=== PATIENT | female | born 1950 | race Caucasian/White ===

== ENCOUNTER 2021-09-23 02:24 | Inpatient (IN) | payer OTHER ==
[~2021-09-23] VITALS: Ht 154.9 cm; Wt 59.4 kg
[2021-09-23] MEDS ORDERED: ATORVASTATIN CA20 MG PO (05:58)
[2021-09-23] MEDS ORDERED: EUTHYROX88 MCG PO (05:58)
[2021-09-23] MEDS ORDERED: VISTARIL 25 MG25 M1 PO (05:59)
[2021-09-23] MEDS ORDERED: LAMOTRIGINE100 MG PO (05:59)
[2021-09-23] MEDS ORDERED: OLANZAPINE15 MG PO (05:59)
[2021-09-23] MEDS ORDERED: OMEPRAZOLE40 MG PO (06:00)
[2021-09-23] MEDS ORDERED: DULOXETINE HCL30 MG PO (06:00)
[2021-09-23] MEDS ORDERED: OLANZAPINE10 MG PO (06:01)
[2021-09-23] MEDS ORDERED: METOPROLOL SUCC50 MG PO (06:01)
[2021-09-23] MEDS ORDERED: LISINOPRIL10 MG PO (06:01)
[2021-09-23] MEDS ORDERED: HYDROCHLOROTH12.5 M2 PO (06:04)
[2021-09-24 13:39] LABS: CHOLESTEROL 163 mg/dL (<200); HDL CHOLESTEROL 55 mg/dL (>40); LDL CHOLESTEROL 85 mg/dL (<100); TRIGLYCERIDE 116 mg/dL (<150); VLDL 23 mg/dL (<40)
[2021-09-24 13:41] LABS: SERUM ASSESSMENT Clear
[2021-09-24 18:43] VITALS: BP 103/60
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
[2021-09-25 01:06] LABS: GLYCOHEMOGLOBIN (HGB A1C) 5.8 % (4.8-5.6)
--- NOTE | 2021-09-25 05:01 | NUR ---
09-24-21 CARE TRANSFERRED 1899. LATER PT AAOX4, VSS, RR EVEN AND NONLABORED ON RA, PT LUNGS CLEAR, HT RR, ABD SOFT/ACTIVE/NONTENDER. PT REPORTS HAVING THOUGHTS OF ENDING IT ALL BY OD, DENIES HI/VAH. PT PRESENTS DEPRESSED BUT COOPERATIVE. PT INTERESTED IN HS SNACK, BUT REFUSED WHEN ASKED TO COME TO DAY ROOM, PT WITHDRAWN. PT DENIES PAIN. DURING MEDICATION ADMIN OBSERVED PT MOVE FROM LAYING TO SITTING WITH EASE, SHE HAD NO DIFFICULTIES TAKING WHOLE WITH WATER. PT DENIES ANY REQUESTS AND DENIES NEEDING BED ADJUSTED. PT WILL CONTINUE TO BE MONITOR PER [facility] PROTOCOL.
--- NOTE | 2021-09-25 10:20 | NUR ---
New admit to [facility] for SI, psychosis. Hx bipolar, htn, laryngeal cancer. Visit this am in pt's room. States ate very good this am and has no nutrition meal requests. Reports usual wt 134 lb-current wt 129 lb so 5 lb decrease from usual/4% which is mild loss. Pt stated did not feel like eating past several weeks. Receptive to snack last evening. Will follow intake and wt trends while on [facility]. Otherwise, presents low nutrition risk
--- NOTE | 2021-09-25 12:54 | NUR ---
09-25-2021--1287--Team meeting attended and patient was discussed. Patient will return to her former residence and will stay here through the weekend and probably DC the middle of next week.
[2021-09-25 13:19] VITALS: BP 133/64
[2021-09-25 14:52] VITALS: BP 133/64
--- NOTE | 2021-09-25 16:33 | NUR ---
Assummed pt care this morning from overnight shift. Client was in room resting on bed. Client presented flat and calm at this time. Client was oriented 4x during assessment. Client denied any depression or anxiety when asked. Client denied any auditory or visual hallucinations. Client denied pain at this time. Client voiced no to suicidal and homicidal thoughts when asked. Lung sounds clear; bowel sounds present. Last BM 09/23 per shift report. Old medications were dc'ed yesterday by Dr. Huang, and lithium started. No adverse effects noted upon assessment- no shaking, tremors. When asked if she needed anything, client stated no. Client was encouraged to get out of room and participate in group at this time. No further concerns.
[2021-09-25 19:15] VITALS: BP 112/71
--- NOTE | 2021-09-26 04:06 | NUR ---
Assumed pt's care this HS shift. Pt alert and oriented. Pt was in her room resting with eyes closed at time of assessment. Denied SI/HI/AVH. Denied anxiety. Voiced to nursing "I'm ok right now". Pt cooperative with meds. Continues to sleep in her room. Nursing to continue to monitor.
[2021-09-26 09:55] VITALS: BP 91/61
[2021-09-26 10:00] VITALS: BP 118/72
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
[2021-09-26 20:41] VITALS: BP 155/77
--- NOTE | 2021-09-27 03:23 | NUR ---
Assumed pt's care this pm shift. Pt alert and oriented. Isolating in rm. Pt was calm and cooperative with care. Denied SI/HI. Voiced having "just the normal" anxiety and depression. Pt took meds without issues. Pt came out of rm at about 0200 and asked for sleep meds. Pt reminded she got sleep med at bedtime. Pt voiced having anxiety. This RN called Everette LOPEZ. Ok to switch 1400 prn ativan to prn daily and give pt. Med given to pt and pt currently sleeping. Nursing to continue to monitor.
[2021-09-27 10:25] VITALS: BP 155/82
[2021-09-27 19:57] VITALS: BP 89/44
[2021-09-27 20:10] VITALS: BP 89/44
--- NOTE | 2021-09-27 21:26 | NUR ---
Assumed pt care at 1300. Pt was in activity area sitting and talking to peers. Pt presented pleasant but anxious. Pt denied any depression, but did voice anxiety. Hank Martinez contacted for prn for anxiety 07/26 as client had already taken her prn ativan this morning at 2am and could only take it once a day. Ativan at 1400 was reinstated for anxiety on pt DEC per JAVA DEVELOPER WITH SECURITY CLEARANCE Juan and given to pt, providing relief of anxiety. Pt denied any visual or audio hallucinations at this time. She also denied any suicidal or homicidal intent. Pt was oriented 4x to her environment and surroundings. No pain noted at time of assessment. Scheduled anti-acid medication given at dinner time. No further concerns at this time.
--- NOTE | 2021-09-28 01:26 | NUR ---
09/27/21 @ 1900, ambulating with a steady gait in the day room and thru the halls to her room. Low fall risk, continent of B&B, A&Ox4, VS 89/44 61 16 afebrile, held lisinopril d/t hypotension. HRRR, Lungs CTA ABD Nx4Q. Reports general pain 6/10 and pain in her back. Just before midnight requests meds for insomnia and presents with an anxious affect. Order obtained from Owen MARQUEZ for Trazadone 100mg given now, and order set up to give Trazadone 100mg @ HS then a second dose may be given an hour later if insomnia continues. PRN Ativan 0.5 provided for anxiety. Returned to bed and is lying in bed at this writing with eyes closed, respirations even and unlabored. Will continue to monitor q12 minutes as per unit protocol for safety and comfort.
--- NOTE | 2021-09-28 06:02 | NUR ---
09/28/21 0600 Critical high value lithium 1.4 Hank Martinez NP hold lithium.
[2021-09-28 09:10] VITALS: BP 111/63
[2021-09-28 09:18] LABS: CALCIUM 10.7 mg/dL (8.5-10.1); CREATININE 1.7 mg/dL (0.6-1.0); POTASSIUM 4.2 mmol/L (3.5-5.1)
[2021-09-28 20:14] VITALS: BP 154/79
--- NOTE | 2021-09-28 23:09 | NUR ---
PATIENT RESTING IN THE COMMON AREA IN A RECLINER. SHE IS ANXIOUS AND STATES THAT SHE DOES NOT FEEL LIKE SHE CAN SIT DOWN. STATES THAT SHE DOES NOT KNOW WHY SHE IS ANXIOUS BUT SHE FEELS LIKE THIS FREQUENTLY. NOTED THAT SHE HAS JUST RECEIVED PRN ATIVAN AT 1913. PATIENT HAS IV INFUSING TO R FA AT THIS TIME. SHE STATES THAT SHE DID NOT SLEEP WELL LAST NIGHT SO SHE IS READY FOR BED. SPOKE WITH PATIENTS DAUGHTER YEHUDA WHO STATES THAT THE PATIENT DOES NOT SOUND LIKE HER NORMAL SELF. SPOKE WITH THE DAUGHTER ABOUT PATIENTS MEDICATIONS. PATIENT IS AAOX4 AND FOLLOWS ALL COMMANDS. SHE DOES SEEM TO EXHIBIT SOME FORGETFULLNESS. NO S/S OF DISTRESS NOTED. PATINET DENIES PAIN AT THIS TIME.
[2021-09-29 06:27] LABS: ALBUMIN 3.4 g/dL (3.4-5.0); CALCIUM 9.4 mg/dL (8.5-10.1); CREATININE 1.3 mg/dL (0.6-1.0); MAGNESIUM 1.8 mg/dL (1.8-2.4); POTASSIUM 4.2 mmol/L (3.5-5.1); TOTAL BILIRUBIN 0.3 mg/dL (0.2-1.0); TOTAL PROTEIN 6.3 g/dL (6.4-8.2)
[2021-09-29 09:32] VITALS: BP 178/70
[2021-09-29 10:03] VITALS: BP 193/95
[2021-09-29 17:02] VITALS: BP 104/64
--- NOTE | 2021-09-29 17:09 | NUR ---
Ary was alert and oriented x4 this shift. She presented as anxious yet cooperative and pleasant. She stated that she felt restless and would be walking the unit this shift, which was observed. Pt expressed that she felt better than the day prior but "I'm still depressed". She expressed that her depression has maybe improved "by a pinch" and continues to endorse ongoing anxiety. She asked to shower today, and was setup in the shower room, which she was able to complete her shower independently. Pt remains a low fall risk and ambulates independently, without difficulty. He initial BP electronically this morning was 193/95. This RN retook BP manually and was 178/70; scheduled BP medications given per DEC. BP was rechecked this afternoon as was 104/64. Pt had c/o lower back pain this shift and was given PRN tylenol around 1615; discussed with pt how a lidocaine patch may be helpful if pain continues. Pt agreed. She denied any other physical complaint this shift and denied SI/HI/ORMERO and was able to contract for safety. Pt is currently sitting calmly in the dayroom eating dinner. She reported a decreased appetite this shift stating that she did not like the food that was being served, a menu was provided to pt, but she did not choose to order her own meals today. Will remind pt that this is an option if she wishes for tomorrow; will continue to monitor.
[2021-09-29 20:07] VITALS: BP 140/48
--- NOTE | 2021-09-30 01:34 | NUR ---
PATIENT APPEARS TO BE IN BETTER SPIRITS THIS EVENING. SHE IS AAOX3. STATES THAT SHE IS FEELING BETTER TODAY AFTER RECEIVING FLUIDS. NOTED THAT PATIENT DID NOT HAVE ANY ATIVAN TODAY. SHE IS QUIET TODAY AND HAS STAYED TO HERSELF. WAS COMPLAINING ABOUT THE BED IN HER ROOM BUT WAS ABLE TO REST AFTER STAFF ADJUSTED THE HEAD OF EB. SHE WAS COMPLIANT WITH ALL MEDICATIONS AND TREATMENT. ALL SAFETY PRECAUTIONS ARE IN PLACE. DENIES ANY PAIN AT THIS TIME. NO S/S OF DISTRESS NOTED. WILL CONTINUE TO MONITOR FOR CHANGES IN STATUS.
[2021-09-30 13:57] VITALS: BP 148/123
--- NOTE | 2021-09-30 16:23 | NUR ---
PATIENT HAS BEEN UP, AND OUT ON THE UNIT, AMBULATE WITH STEDY GAIT. PATIENT IS ALERT, AND ORIENTED X 3-4, ABLE TO VOICE NEED. PATIENT TOOK ALL MEDICATION WHOLE WITHOUT DIFFICULTY, SHE IS EATING MEALS, AND DRINKING FLUID WELL. PATIENT APPEARED RESTLESS/ANXIOUS IN THE MORNING, BUT GOT STABLE THE DAY PRORESSESS. PATIENT DENIES SUICIDAL/HOMICIDAL IDEATION, RATES BOTH DEPRESSION/ANXIETY 5/10, SHE DENIES AUDITORY/VISUAL HALLUCINATION, DENIES HAVING PHYSICAL PAIN. AFFECT IS BRIGHT, MOOD IS EUTHYMIC. NO SIGN OF ACUTE DISTRESS NOTED AT THIS TIME, WILL MONITOR FOR SAFETY.
[2021-09-30 18:13] VITALS: BP 117/56
[2021-09-30 19:22] VITALS: BP 121/53
--- NOTE | 2021-09-30 22:59 | NUR ---
09/30/21 1900 IN THE DAY ROOM AT START OF SHIFT, SOCIALIZING WITH FEMALE PEERS AND AMBULATING TO BEDROOM. A&OX4, CONFUSION AND FORGETFULNESS NOTED. PLEASANT AFFECT NOTED COOPERATED WITH ASSESSMENT, HRRR, LUNG SOUNDS CTA BILAT, ABD N X 4Q, REPORTS BM YESTERDAY ON 09/29. AMBULATES WITH A STEADY GAIT, LOW FALL RISK. WILL CONTINUE TO MONITOR FOR SAFETY AND COMFORT.
[2021-10-01 06:27] LABS: CALCIUM 9.8 mg/dL (8.5-10.1); CREATININE 1.5 mg/dL (0.6-1.0); POTASSIUM 4.8 mmol/L (3.5-5.1)
[2021-10-01 07:00] VITALS: BP 176/65
[2021-10-01 09:35] VITALS: BP 176/65
--- NOTE | 2021-10-01 10:33 | NUR ---
RT Progress Note- Ary has been consistently present in recreation therapy groups as well as the general milieu throughout each day since her admission. Ary regularly endorses depression during group discussions but will rate it at a "pinch better" when asked whether she feels as if it is improving. She displays restlessness and frequently paces during groups. OFFICE COORDINATOR will continue to encourage patient participation and improvement in coping skills throughout her stay.
[2021-10-01 12:00] VITALS: BP 110/64
--- NOTE | 2021-10-01 12:29 | NUR ---
Nutrition follow up: Pt noted with good dietary intakes since admit with avg intakes 75-100%. No wt this week. Vit D labs pending. Per physician's note, SLUMS administered with very low results, concerning for dementia. He will assess pt further for dx criteria. Likely will need placement on d/c. Remains low nutrition risk.
--- NOTE | 2021-10-01 15:45 | NUR ---
Alert and orientated X 4. Denies SI/HI. Frequent requests. Up ambulating with regular, steady gait. States she had low back pain mid AM, tylenol given with minimal results. Dr. Garcia and Reina notified. Dr. Garcia spoke with pt. Scheduled Tylenol and prn Tramadol ordered. Pt states pain 8/10 but wanted to try Tramadol. Pain decreased to 5 per pt. Smiling, conversive, participating in group and ambulating without s/o distress. Breath sounds clear. Reg HR auscultated. Color pink with brisk capillary refill and palpable peripheral pulses. Independent with voiding, clear yellow urine in toilet. Active bowel sounds over soft, rounded abdomen. Currently in day room with peers.
[2021-10-01 19:40] VITALS: BP 134/68
--- NOTE | 2021-10-02 03:08 | NUR ---
10-01-21 CARE TRANSFERRED 0 OBSERVED PT SITTING IN DAY ROOM SOCIALIZING WITH PEERS. LATER PT AAOX4, VSS, RR EVEN AND NONLABORED ON RA, LUNGS CLEAR, HT RR, ABD SOFT AND ACTIVE. PT DENIES SI/HI BUT REPORTS LOWER BACK PAIN. DURING MEDICATION ADMIN PT HAD NO DIFFICULTIES TAKING MEDICATION WHOLE WITH WATER. UPON REASSESSMENT OF PAIN NOTED PT RESTING WITH EYES CLOSED. PT WILL CONTINUE TO BE MONITOR PER [facility] PROTOCOL.
[2021-10-02 09:25] VITALS: BP 117/97
--- NOTE | 2021-10-02 11:47 | NUR ---
10-02-2021--1564--Attended team meeting this date. Possibly DC to [facility]. Will call [place] to find out. Doctor and SW will talk to daughter. Dr. Dodson cooing to do mental status testing today.
--- NOTE | 2021-10-02 11:50 | NUR ---
RESUMMED CARE FROM OVERNIGHT SHIFT THIS AM, PATIENT IN DAY ROOM PACES BACK AND FORTH. PATIENT COMPLAINED OF BACK PAIN I PUT A LIDOCAINE PATIENT ON PATIENT. PATIENT HAD SCHEDULED TYLENOL AND AN ORDERED FOR A HEATING PAD WHICH WE CANNOT HAVE ON THE UNIT. A SUGGESTION WAS MADE IF PATIENT NEEDED TO HAVE THE HEATING PAD; SHE WOULD HAVE TO BE IN DAYROOM UNDER SUPERVISION. PATIENT ALERT ORIENTED TIMES 3. PATIENT DENIES SI/HI/AH/VH AT PRESENT PATIENT ATE BREAKFAST TOOK MEDICATION WITHOUT INCIDENCE. PATIENTS ABDOMEN SOFT BOWEL SOUNDS PRESENT, PATIENTS LUNGS CLEAR. PATIENT DOES COMES TO GROUP BUT SOMETIMES CANNOT SIT STILL DUE TO BACK PROBLEMS. PATIENT ANXIOUS AT TIMES NO BEHAVIORS NOTED WILL CONYINUE TO MONITOR PATIENT FOR SAFETY AND BEHAVIORS.
--- NOTE | 2021-10-02 11:55 | NUR ---
10-02-2021--1155--Call to [facility] ([phone]) to determine oif patient can come back to their facility. No one in. Message left to return my call.
[2021-10-02 19:21] VITALS: BP 83/46
[2021-10-02 21:06] LABS: SYPHILIS AB Non Reactive (Non Reactive)
--- NOTE | 2021-10-03 05:02 | NUR ---
Assumed care of pt at 1900. Pt calm et cooperative this shift. Took medications whole without difficulty. Ambulates the halls ad marylu with steady gait. Isolated in room most of shift. Talked with daughter at beginning of shift. Pt states that she came onto the unit with a full set of dentures and is now missing her bottom plate. Pt states that someone on the prior shift found her top plate for her but has yet to find her bottom plate. Will pass onto the oncoming shift to report to the director. Lisinopril held this shift due to b/p reading of 83/46. B/P was rechecked manually by this nurse et found to be 98/62. All other VSWNL. Health assessment with no abnormalities noted at present time. Pt denies SI/HI at present time. Currently resting in bed with eyes closed. Will continue to monitor per unit protocol.
[2021-10-03 09:15] VITALS: BP 195/76
[2021-10-03 13:42] LABS: CALCIUM 9.5 mg/dL (8.5-10.1); CREATININE 1.1 mg/dL (0.6-1.0)
[2021-10-03 13:49] LABS: ALBUMIN 3.5 g/dL (3.4-5.0); TOTAL BILIRUBIN 0.3 mg/dL (0.2-1.0); TOTAL PROTEIN 6.6 g/dL (6.4-8.2)
[2021-10-03 13:50] LABS: ABSOLUTE NEUTROPHILS 5.8 thou/uL (1.4-8.2); BASOPHILS 0.2 % (0.0-2.0); EOSINOPHILS 0.9 % (0.0-3.0); HEMATOCRIT 35.9 % (37.0-47.0); HEMOGLOBIN 11.8 gm/dL (12.0-15.0); MCH 30.6 pg (26.0-34.0); MCV 92.6 fL (80.0-100.0); PLATELET COUNT 202 thou/uL (150-400); POLYS 84.9 % (36.0-66.0); RBC 3.88 mil/uL (4.20-5.00); WBC 6.8 thou/uL (4.0-11.0)
--- NOTE | 2021-10-03 14:11 | NUR ---
10-03-2021--1300--Went to patient's room to get her for group. She was laying in bed and the room was dark. I was able to rouse her and she stated she was ill and had thrown up her lunch. I told her she didn't have to come to group if she was feeling badly. Will check on her later this day. RN aware patient is feeling ill and blood has been drawn.
[2021-10-03 15:24] VITALS: BP 131/60
[2021-10-03 16:49] VITALS: BP 119/48
--- NOTE | 2021-10-03 18:48 | NUR ---
Patient care resummed; patient in bed resting comfortably; Patient has been in room most of the day coming out for meals and water; Patient denies SI/HI/AVH, Anxiety, Depression; Pt. states chronic back pain 02/23; Medications given per EMAR; Patient appears drowsy, winthdrawn, and lethargic; Patient vomited at 1225 after eating 10% of her lunch; PAD MACHINE OFFBEARER noted entire body tremors, pinpoint pupils, and pt. stated feeling "foggy." PAD MACHINE OFFBEARER consulted STUMMEL SELECTOR [place] and Stat labs were ordered and reviewed. Lung sounds clear, unlabored; Abdomen soft, nondistened, with bowel sounds present*4; Skin noted to be pale in color; VSS on RoomAir; Patient denied Stomach pain; Will continue to monitior patient for safety and behaviors.
[2021-10-03 19:58] VITALS: BP 124/52
[2021-10-03 22:22] VITALS: BP 124/52
--- NOTE | 2021-10-04 04:23 | NUR ---
Ary was in her room from the start of the shift resting quietly. She was woken up for her HS medications and expressed she was feeling "blah-zey". She stated that she had "a rough day" and still was not feeling the best but denied one specific thing or symptom that was bothering her. She expressed optimism about tomorrow in hopes that it will be better. She stated her depression and anxiety were "so, so" but denied SI/HI/ROMERO. She was medication compliant, without difficulty and appeared to sleep comfortably throughout the night. She stated she had a small BM on 10/03 and denied nausea/constipation/SOB/pain at this time. Will continue to monitor.
[2021-10-04 09:22] VITALS: BP 150/69
[2021-10-04 09:23] VITALS: BP 150/69
--- NOTE | 2021-10-04 10:28 | NUR ---
Ary was alert and oriented x4 this morning. She presented as calm, cooperative, withdrawn, and isolative with a flat affect. She came out to the dayroom to eat breakfast but went back to her room once she was done. She was unable to eat most the food from her tray due to not having her bottom set of dentures and asked for an ensure; the kitchen is supposed to be bringing up chocolate ensures for her. Pt was provided with some applesauce and yogurt as well. Pt denied SI/HI/ROMERO. She was medication compliant, taking pills whole without difficulty. She has an episode of emesis yesterday and due to pt just starting cymbalta thought it could possibly have been a side of GI upset. Therefore brandon was given with her AM medications to see if that would help. Pt does express she feels "a little" better this morning compared to how she felt yesterday. Pt is currently resting quietly in bed, will continue to monitor.
--- NOTE | 2021-10-04 13:01 | NUR ---
10-04-21--1243--Patient was seen this afternoon before group, coming down the [place]. I inquired how she was feeling as yesterday she was throwing up. She states she feels much better today and is going to try ordering off the menu and getting one of the smaller meals. Patient attempting to cope with changes that are occuring such as her upcoming DC. She talks about it woth me now without having the anxiety she displayed two days ago when we spoke about discharge
[2021-10-04 19:54] VITALS: BP 98/44
[2021-10-05] VITALS (10 sets, daily range): BP systolic 94–118; BP diastolic 43–70
--- NOTE | 2021-10-05 03:55 | NUR ---
10-04-21 CARE TRANSFERRED 1899. LATER PT AAOX4, B/P LOW WALDO TAKEN 90/62, P 92, RR 16 EVEN AND NONLABORED ON RA. PT DENIES SI/HI. PT LUNGS CLEAR DIMINSIHED, HT RR, ABD SOFT/ACTIVE/NONTENDER. OBSERVED PT MOVING FROM LYING DOWN TO SITTING WITH EASE. PT PLEASANT, CALM AND COOPERATIVE THROUGHTOUT NURSING ASSESSMENT. PT DENIES SI/HI AND REPORTED BACK PAIN. FLUIDS ENCOURAGED AND PT DRANK 480ML OF WATER AND ATE 100% OF ICE CREAM CUP. DURING MEDICATION ADMIN PT HAD NO DIFFICULTIES TAKING MEDICATION WITH WATER AND CONSUMED 240ML. FLUIDS WILL CONTNUE TO BE ENCOURAGED WHILE AWAKE. PT BED WAS ADJUSTED FOR COMFORT. UPON REASSESSMENT FOR PAIN NOTED PT RESTING WITH EYE CLOSED, PT WLL CONTINUE TO BE MONITOR PER [facility] PROTOCOL.
[2021-10-05 06:23] LABS: ALBUMIN 3.4 g/dL (3.4-5.0); CALCIUM 9.2 mg/dL (8.5-10.1); CREATININE 1.7 mg/dL (0.6-1.0); POTASSIUM 4.5 mmol/L (3.5-5.1); TOTAL BILIRUBIN 0.3 mg/dL (0.2-1.0); TOTAL PROTEIN 6.4 g/dL (6.4-8.2)
--- NOTE | 2021-10-05 09:17 | NUR ---
CODE STROKE LEVEL 1 RESPONSE FROM THIS WEB DATABASE DEVELOPER. STROKE ACTIVATION AT 08:07. PT LAYING IN BED. INITIAL NIHSS OF 4. LEFT SIDED FACIAL DROOP, LEFT SIDED SENSORY CHANGES, LEFT UPPER EXT ATAXIA AND SLURRED SPEECH. REPORT FROM RN FOLLOWS. PT FOUND SLUMMPED AT TABLE AND TAKEN BACK TO BED. BLOOD GLUCOSE LEVEL-81. PT HYPOTENSIVE WITH BP IN 80'S INITIALLY. NS INFUSION INITIATED. PT WAS SLOW TO REPOND. DR PEARSON ARRIVES TO BEDSIDE. TELENEUROLOGY CONSULTED AT BEDSIDE AND RECOMMENDS NO TPA HOWEVER FULL STROKE WORKUP. PT TAKEN TO CT WITH CT HEAD AND ANGIO COMPLETED. PT FACIAL DROOP RESOVING HOWEVER SPEECH AND SENSORY CHANGES REMAIN. PT TAKEN BACK TO ROOM AWAITING NEW BED ASSIGNMENT.REPORT GIVEN TO TULIO LUDWIG. WILL CONTINUE TO FOLLOW.
--- NOTE | 2021-10-05 09:25 | NUR ---
PT REPORTED TO HAVE LOW BP ON MACHINE THIS AM-RECHECKED BY RN AT 0745 AND IS 118/70-AMBULATES WITH ROLLER WALKER TO BREAKFAST ACCOMPNIED BY MARKETING SUPPORT MANAGER. AT APPROX 0800 NOTED TO BE SITTING WITH HEAD BOWED AND VERY SLOW TO RESPOND WOT VERBAL STIMULI-SKIN PALE BUT COOL,DRY-WHEN PROMPTED TO SPEAK TO US MAKES A LOW GROANING SOUND BUT APPEARS UNABLE TO SPEAK-BROUGHT TO ROOM IN WC-CODE STROKE CALLED-VS OBTAINED AND BP IS 89/64-P-49 O2 SAT 92 OERCENT. O2 PLACED AT 2LITERS PER NC-IV STARTED IN RIGHT ANTICUBITAL. STROKE TEAM AT BEDSIDE AT 0815-BP99/43 P-49 R12 AND REGULAR-02 SAT [address] SCAN AT APPROX 0830-VS 106/45 P-53 02 94 PERCENT
--- NOTE | 2021-10-05 11:28 | NUR ---
MEAL COOKER CALLED THIS MORNING FOR STROKE-LIKE SYMPTOMS. SEE FLOWSHEET FOR DETAILS.
--- NOTE | 2021-10-05 14:41 | 2DMMODE ---
[address] [address] 2 D/M-MODE ECHOCARDIOGRAM Name: ZACHARY SANTO MARY Room #: [facility]- ADM IN M.R.#: [id number] Admission: 09/24/21 Attend Phys: Arash Huang DO Discharge: Date of : 48 Report #: [id number] THIS REPORT FOR: cc: VERONICA BAUTISTA NP, AMY NP Santiago, Patrick MD [facility] ~ APPROVED REPORT Study performed: 10/05/2021 13:57:05 EXAM: Comprehensive 2D, Doppler, and color-flow Echocardiogram Patient Location: Bedside Room #: [facility] Status: routine BSA: 1.57 HR: 58 bpm BP: 118/70 mmHg Rhythm: Bradycardia Other Information Study Quality: Good Indications CVA/TIA Hypertension/HDD Echo Enhancing Agent Indication: Rule out Shunt Agent(s) / Amount(s) Used: Agitated Saline 7 cc 2D Dimensions IVC: 12.00 mm Volumes Left Atrial Volume (Systole) LA ESV Index: 26.00 mL/m2 Tricuspid Valve PA Pressure: 30.00 mmHg Left Ventricle The left ventricle is normal size. There is normal LV segmental wall motion. There is normal left ventricular wall thickness. The left ventricular systolic function is normal. The left ventricular [address] [address] 2 D/M-MODE ECHOCARDIOGRAM Name: ZACHARY SANTO Room #: 52-B ADM IN M.R.#: [id number] Admission: 09/24/21 Attend Phys: Arash Huang Discharge: Date of : 48 Report #: [id number] ejection fraction is within the normal range. LVEF is 60-65%. Grade I - abnormal relaxation pattern. Right Ventricle The right ventricle is normal size. The right ventricular systolic function is normal. Atria The left atrium size is normal. Injection of contrast documented no interatrial shunt. The right atrium size is normal. Aortic Valve The aortic valve is normal in structure. No aortic regurgitation is present. There is no aortic valvular stenosis. Mitral Valve The mitral valve is normal in structure. There is no mitral valve regurgitation noted. No evidence of mitral valve stenosis. Tricuspid Valve The tricuspid valve is normal in structure. Mild tricuspid regurgitation. No pulmonary hypertension. Pulmonic Valve The pulmonary valve is normal in structure. There is no pulmonic valvular regurgitation. Great Vessels The aortic root is normal in size. IVC is normal in size and collapses >50% with inspiration. Pericardium There is no pericardial effusion. <Conclusion> Normal left ventricle size/wall thickness Ejection fraction 60-65% Grade 1 diastolic dysfunction Normal right ventricle size/function Normal atrial size Aortic valve mildly sclerotic without stenosis Normal mitral valve structure and function Mild tricuspid valve insufficiency Pulmonary systolic pressure estimated 30 mmHg [facility] [address] [place] [address] 2 D/M-MODE ECHOCARDIOGRAM Name: ZACHARY SANTO MARY Room #: 521B-B ADM IN M.R.#: [id number] Admission: 09/24/21 Attend Phys: Arash Huang Discharge: Date of : 48 Report #: [id number] No pericardial effusion Normal aortic root size <ELECTRONICALLY SIGNED> By: Jb San MD, FACC 10/05/21 1441 144 144 Jb San MD, FACC /INF
--- NOTE | 2021-10-05 17:12 | NUR ---
AT BEDSIDE MAJORTIY OF SHIFT TO MAINTAIN 1;1 THROUGHOUT INFUSION OF 1000ML OF NS VIA IV TO RIGHT ANTICUBITAL,Q 15 MIN VS X8 AND Q 30 MIN VS X12 PER STROKE PROTOCOL ORDERED THIS AM-RN IN ROOM FOR MULTIPLE DIAGNOSTIC TESTS ORDERED PER STROKE WORK UP-IE CAROTID DOPPLER,ECHOCARDIOGRAM,SPEECH,PT,OT EVALS. DID EAT 50 PERCENT OF BOTH LUNCH AND DINER-DIET CHANGED TO CHOPPED PER SPEECH EVL RECOMMENDATIONS-INSISTING THAT SHE CAN NOT EAT SOLID FOODS D/T LOWER DENTURES BEING LOST-LOWER DENTURES FOUND IN ROOM WITH OTHER BELONGINGS AND MATCH UPPER PLATE THAT SHE IS WEARING HOWEVER INSISTING THAT THEY ARE NOT HER TEETH. UP TO BATHROOM X3 . PLEASANT AND COOPERATIVE WITH STAFF THROUGHOUT DAY-REPORTING BEING UPSET THAT SHE HAS BEEN AWAKENED Q15-30 MIN FOR NEURO CHECKS BUT IS COOPERATIVE WITH ALLOWING. ORIENTED X4. GAIT UNSTEADY DESPITE USE OF ROLLER WALKER-REPORTS FEELING 'WEAK"
[2021-10-06 04:00] VITALS: BP 118/66
[2021-10-06 07:30] LABS: CALCIUM 9.6 mg/dL (8.5-10.1); CREATININE 1.2 mg/dL (0.6-1.0); POTASSIUM 4.5 mmol/L (3.5-5.1)
--- NOTE | 2021-10-06 07:45 | NUR ---
10-06-21 CARE TRANSFERRED 1899. LATER PT AAOX4, B/P 90/62, P 65, WALDO TAKEN 94/62, RR 19, PT DENIES PAIN AND SI/HI OBSERVED PT GAIT WITH WALKER. PT SPEECH CLEAR, STEAM TURBINE OPERATOR EQUAL, EYES EQUAL AND REACTIVE, SMILE EQUAL, NO UE/LE DRIFT. PT PLEASANT, CALM AND COOPERATIVE. PT WILL CONTINUE TO BE MONITOR.
--- NOTE | 2021-10-06 09:58 | NUR ---
10-06-2021--1000--Talked to doctor today and he said he talked to Alanis yesterday and made an appointment meeting for today at 3:30. He is not sure of the time and wanted me to call her to verify. Call made no answer and no machine. He states the plan is for her to go to her daughters home and start in a PHP program for something to do . I will call [facility] to determine of they have a PHP program. I will try call again this AM.
--- NOTE | 2021-10-06 10:09 | NUR ---
10-06-2021--1000--Call to [facility] [address] [place], [place]. ([phone]). They report their PHP program is full and they will not be having oit the week of 24 to 31. They also report their program is an Active Adult Daycare and lasts only for up to two weeks. I called [facility] ([phone]). They require the patient to callherself so she can answer some questions and they would get her in as quick as possible for an intake. Attempted to call Chelly again. No answer. The other option would be the [facility] program at [address] [facility] In [place], [place]. She needs to call for this program also and talk to Yara for enrollment. This program is covered by her [facility] Medicare.
[2021-10-06 10:38] VITALS: BP 151/67
[2021-10-06 11:18] VITALS: BP 138/71
--- NOTE | 2021-10-06 11:47 | NUR ---
RESUMMED CARE FROM OVERNIGHT SHIFT THIS AM, PATIENT IS WALKING AROUND HALLS OF UNUT. SHE STATES SHE CANNOT SIT STILL SHE NEEDS TO KEEP MOVING AROUND. PATIENT ALERT ORIENTED TO SITUATION, ALERT TO YEAR AND MONTH FORGOT DAY. PATIENT DENIES SI/HI/AH/VH AT PRESENT. PATIENTS ABDOMEN SOFT BOWEL SOUNDS PRESENT; PATIENTS LUNGS CLEAR. PATIENT DOES COME TO GROUPS AND WANTS TO GO HOME TOMMOROW. PATIENT STATES SHE FEELS BETTER AFTER THE IV FLUIDS YESTERDAY. WILL CONTINUE TO MONITOR PATIENT FOR SAFETY AND BEHAVIORS.
[2021-10-06 20:17] VITALS: BP 141/61
--- NOTE | 2021-10-07 05:36 | NUR ---
10-06-21 CARE TRANSFERRED 1899 OBSERVED PT WALKING IN HALLWAY WITH WALKER. PT AAOX4, VSS, RR EVEN AND NONLABORED ON RA; LUNG CLEAR/DIMINISHED, HT RR, ABD SOFT/ACTIVE/NONTENDER. PT DENIES SI/HI. PT PLEASANT, CALM AND COOPERATIVE. DURING MEDICATION ADMIN PT HAD NO DIFFICULTIES TAKING MEDICATION WHOLE WITH WATER. PT REPORTED THAT HER ROOMATE ADDS TO HER ANXIETY, BECAUSE SHE TALKS TOO MUCH. PT BED WAS ADJUSTED FOR COMFORT. PT WILL CONTINUE TO BE MONITOR PER [facility] PROTOCOL.
--- NOTE | 2021-10-07 10:39 | NUR ---
RESTLESS AND PACING THROUGHOUT AM-UP AND DOWN EVERY 2-3 MINUTES SOMETIMES MORE FREQUENTLY-DOES ACKNOWLEDGE FEELING NERVOUS BUT SHOWS NO INSIGHT INTO THINGS SUCH TRIGGERS.
--- NOTE | 2021-10-07 11:00 | NUR ---
RT Progress Note- Ary continues to participate in both the milieu and recreation therapy groups as she was previously. She continues to display restlessness and is unable to sit for longer periods of time without intermittently pacing area. When she does this she describes her feelings as, "antsy." She does report improvement in her depression but endorses worry about her future. SACK KEEPER will continue to encourage participation and improvement.
[2021-10-07 11:01] VITALS: BP 174/66
--- NOTE | 2021-10-07 11:02 | NUR ---
MULTIPLE DEMANDS /REQUESTS TODAY. STATES SHE IS GOING HOME TODAY AND HAS REQUESTED SHOWER AND MULTIPLE OTHER SMALL REQUESTS/CONCERNS. USING ROLLER WALKER FOR AMBULATION-REMAINS ON [place] R[place]K PROTOCOL BUT IS NON-COMPLIENT WITH REQUESTS FROM STAFF TO ALLOW US TO ASSIST WITH AMBULATIONCOMPLIENT WITH TAKING MEDS PO-DENIES SI/SH. CONSTRICTED AFFECT-ORINETED X3. BP PRIOR TO AM MEDS 174/66 P-58. DENIES DIZZINESS. DENIES PAIN-STATING "I'M FINE I JUST WANT TO GO HOME"
--- NOTE | 2021-10-07 11:33 | NUR ---
Followup: code stroke called earlier this week for pt. Diet has been downgraded by ST since pt refusing to wear dentures. Has ensure supplements which were ordered. Intakes have been fair and wts are stable as of 10/03. Vitamin D level wnl. Remains low nutrition risk with appropriate nutrition interventions in place
--- NOTE | 2021-10-07 11:58 | NUR ---
10-07-2021--1288--Attended team meeting for patient this date. Patient has been "antsy" mildly agitated today. She couldn't sit still in my office when we were attempting to contact her insurance company. She requested the door be opened and left open. She also stated she couldn't make any decisions right now. The same two facilities were given to me by her insurance company. I have a handout to send with her of the two programs that are in network, etc. Patient appeared very anxious the last time we discussed her dischargng. Question if this anxiety is the fear of the change coming and if [facility] placement may be the right setting for her where there is more structure.
[2021-10-07 19:20] VITALS: BP 137/57
[2021-10-07 22:12] VITALS: BP 137/57
--- NOTE | 2021-10-08 00:19 | NUR ---
Ary was alert and oriented x4 this shift. She was noted walking around with a walker at the start of the shift. She approached the nurses station and had a smile on her face. She appeared in good spirits and expressed she is ok not being discharged prior to Gladys as she does not want to discharge until she is ready. She was laying down resting in med when brought her HS medications. She presented as calm, cooperative, and pleasant. She rated her depression and anxiety 4/10 and denied SI/HI/ROMERO. She denied pain at that time but received her scheudled tylenol. She denied other physical complaints at that time and appeared to rest comfortably throughout the night; will continue to monitor.
--- NOTE | 2021-10-08 10:48 | NUR ---
RESTLESS AND PACING THROUGHOUT AM-ASKING SEVERAL TIMES "WHEN WILL I GET BETTER" NOT RECEPTIVE WITH ATTEMPTS TO TRY RELAXATION TECHNIQUES,DEEP BREATHING STATING "I CAN'T"BP THIS AM157/68 P-63. GAIT IS STEADY WITH USE OF ROLLER WALKER
[2021-10-08 10:49] VITALS: BP 123/81
[2021-10-08 11:23] LABS: CALCIUM 9.6 mg/dL (8.5-10.1); POTASSIUM 4.2 mmol/L (3.5-5.1)
[2021-10-08 11:30] LABS: ALBUMIN 3.7 g/dL (3.4-5.0); TOTAL BILIRUBIN 0.1 mg/dL (0.2-1.0); TOTAL PROTEIN 7.1 g/dL (6.4-8.2)
--- NOTE | 2021-10-08 15:36 | NUR ---
GIVEN FIRST DOSE OF INDEROL PO AT APPROX 1115-BP TAKEN PRIOR TO AFMINISTRATION 149/74-PT DENIES DIZZINESS . DOES APPEAR LESS RESTLESS WITHIN APPROX 45 MIN FROM ADMINISTRATION TIME-RESTING QUIETLY IN BED BETWEEN SCHEDULED GROUPS THIS PM
[2021-10-08 19:28] VITALS: BP 182/62
[2021-10-08 22:27] VITALS: BP 124/62
--- NOTE | 2021-10-09 05:10 | NUR ---
Ary was alert and oriented x4 this shift. She presented as withdrawn and sad this shift. She also appeared frustrated regarding her roommate being very talkative and she appeared restless trying to rest but then getting up to walk around the unit with her walker, due to her roommate being on the phone. Her BP upon initial assessment was 182/62, this RN retook manually and was 174/78. Pt received her HS medications and about an hour after pt's BP was 124/62, manually. She denied SI/HI/ROMERO but did present with a flat affect. She denied pain and other physical complaints at that time. Pt appeared to rest comfortably throughout the night; will continue to monitor.
[2021-10-09 09:30] VITALS: BP 105/62
[2021-10-09 09:44] VITALS: BP 105/62
--- NOTE | 2021-10-09 17:26 | NUR ---
Primary care done by Kristan Sherwood LPN. Assessment done by this RN. Alert and orientated X4. Calm, cooperative and compliant. Restless this AM and anxious for meds, sleeping in room in afternoon. Denies SI/HI. Breath sounds clear. Reg HR auscultated. Color pink with brisk capillary refill and palpable peripheral pulses. Brief dry. Active bowel sounds over soft, rounded abdomen. Ambulates with regular, steady gait. Currently ambulating in halls without s/o distress.
[2021-10-09 19:19] VITALS: BP 181/73
--- NOTE | 2021-10-10 04:13 | NUR ---
Assumed care of pt at 1900. Pt calm et cooperative this shift with pleasant demeanor. AOX3. Took medications whole without difficulty. Ambulates the halls ad marylu with steady gait. Socialized with peers in dayroom early in shift. VSWNL. Health assessment with no abnormalities noted at present time. Pt denies SI/HI at present time. No AVH noted at present time. No c/o pain or discomfort this shift. Currently restin in bed with eyes closed. Will continue to monitor per unit protocol.
[2021-10-10 08:35] VITALS: BP 125/63
[2021-10-10 09:11] VITALS: BP 125/63
--- NOTE | 2021-10-10 16:43 | NUR ---
Assumed pt care this morning from overnight shift. Pt was in activity area sitting and watching television. Pt presented anxious, but pleasant and was oriented 4x at this time. Pt expressed generalized pain /10. Lidocaine patch applied for back pain, and voltaren cream applied on back by staff. Client also given scheduled tylenol. Partial pain relief 2/10 achieved. Client reported depression and anxiety at a seven. Scheduled medications given for this. Client denied hallucinations at this time. Client also denied suicidal and homicidal thoughts at this time. Lung sounds clear with slight wheezing in upper right lobe. Bowel sounds present. Last noted BM 10/10. Client has no further concerns at this time.
[2021-10-10 19:07] VITALS: BP 146/72
[2021-10-10 20:45] VITALS: BP 146/72
--- NOTE | 2021-10-11 01:17 | NUR ---
PATIENT IS CALM AND COOPERATIVE. SHE TOOK HER MEDS WHOLE WITH WATER. SHE DENIES SI/HI/AVH. SHE IS UP WITH WALKER. PATIENT IS RESTING IN BED WITH EYES CLOSED. DENIES PAIN. ROUTINE ROUNDS TO ASSESS SAFETY AND STATUS OF PATIENT. CONTINUING TO MONITOR.
[2021-10-11 09:41] VITALS: BP 160/84
--- NOTE | 2021-10-11 14:30 | NUR ---
Assumed pt's care this am shift. Alert and oriented. Cooperative with care. Takes meds whole. Pt endorsed some anxiety and 7/10 depression. Denies SI/HI. Denies AVH. Participating in group and interacting with peers. Pt currently sitting in the dayroom watching tv. Nursing to continue to monitor.
[2021-10-11 19:06] VITALS: BP 113/60
[2021-10-11 20:00] VITALS: BP 113/60
--- NOTE | 2021-10-12 04:20 | NUR ---
PATIENT CARE WAS RESUMED AT 1900. SHE IS ALERT AND ORIENTED.AMBULATES AND ABLE TO VERBALIZE SOME NEEDS. SHE IS CONTINET OF BOWEL AND BLADDER. SHE DENIES ANY SI/AVH/HI. LUNGS ARE CLEAR BS ACTIVE X4 QUAD. SHE TOOK HER MEDS WHOLE AND NO CONCERN VERBALIZED AT THIS TIME. PATIENT IS IN BED, BED IS LOW, LOCKED. [id number] CHECKS ONGOING CONTINUE CARE
[2021-10-12 09:15] VITALS: BP 160/84; BP 164/79
--- NOTE | 2021-10-12 12:21 | NUR ---
10-12-2021--0945--Attended treatment team this date. Looking at DC on Tuesday10-13-2021 to her daughters. Daughter will take her to [facility] to do intake for [facility] program, psychiatrist, therapist and case management. Doctor and I will call patient's daughter this date.
[2021-10-12 12:28] VITALS: BP 164/79
--- NOTE | 2021-10-12 13:45 | NUR ---
10-12-2021--1400--Patient made call to [facility] and left her name and number at her daughter's home to make an appointment for an intake. Information also written down in DC paperwork and on an extra sheet to be included in patient's DC paperwork for taking home.
[2021-10-12 14:55] LABS: % SATURATION 18 % (20-39); IRON 58 ug/dL (50-170); TIBC 317 ug/dL (250-450)
--- NOTE | 2021-10-12 16:46 | NUR ---
Ary was alert and oriented x4 this shift. She presents as withdrawn and cooperative, yet she has spent most of the day in the dayroom and has been social with peers. She rated her anxiety and depression 7/10; 10 being the worst. She feels as though she is slightly improved but still feel depressed and wants to work on improving her mood. She participated in groups this shift and has been medication compliant, without difficulty. She has been somewhat restless throughout the day, frequently walking the unit with her walker. She took a nap this afternoon and denied any physical complaints at this time; will continue to monitor.
[2021-10-12 19:50] VITALS: BP 104/56
[2021-10-12 20:08] VITALS: BP 104/56
--- NOTE | 2021-10-13 03:34 | NUR ---
PATIENT CARE WAS RESUMED AT 1900. PATIENT WAS AWAKE AND SITTING IN THE DININIG ROOM WITH OTHER PATIENTS. SHE AMBULATES WITH WALKER , GAIT IS STAEDY. SHE IS CONTINIET OF BOWEL AND BLADDER. LUNGS ARE CLEAR BS ACTIVE X4 QUADS. SHE DENIES SI/AVH/HI. SHE TOOK HER MEDS WHOLE. NO BEHAVOIR NOTED AT THIS TIME. SHE HAD ANXIETY MEDICATION AND SHE SLEPT GOOD. NONE SKID SOCKS IS ON, BED IS LOW AND LOCKED. [id number] CHECKS ONGOING CONTINUE CARE
[2021-10-13 09:32] VITALS: BP 148/82
--- NOTE | 2021-10-13 10:08 | NUR ---
RESUMMED CARE FROM OVERNIGHT SHIFT THIS AM, PATIENT SITTING IN DAY ROOM TALKING WITH OTHER PATIENTS. PATIENT ALERT ORIENTED TIMES 4 PATIENT DENIES SI/HI/AH/VH AT PRESENT. PATIENT ATE BREAKFAST TOOK MEDICATION WITHOUT INCIDENCE. PATIENTS ABDOMEN SOFT BOWEL SOUNDS PRESENT, PATIENTS LUNGS CLEAR. PATIENT IS DISCHARGING TODAY TO HER DAUGHTERS HOME, PATIENT STATES HER DEPRESSION IS STILL AN ISSUE. PATIENTS ANXIEY IS STILL ABOUT A 5 PATIENT CALM PARTICPATES IN ALL GROUPS. WILL CONTINUE TO MONIOR PATIENT FOR SAFETY AND BEHAVIORS.
[2021-10-13] MEDS ORDERED: BAYER CHEWABLE81 MG PO (11:58)
[2021-10-13] MEDS ORDERED: CYMBALTA60 MG PO (12:00)
[2021-10-13] MEDS ORDERED: TRAZODONE HCL100 MG PO (12:01)
[2021-10-13] MEDS ORDERED: LORAZEPAM 0.50.5 MG PO (12:02)
[2021-10-13] MEDS ORDERED: PROTONIX 20 MG20 M1 PO (12:03)
--- NOTE | 2021-10-13 13:08 | NUR ---
Nutrition follow up: Pt with adequate intakes 75-100% at meals. Ensure enlive Chocolate in place with good acceptance. Remains on [facility] soft/chopped diet with no c/o chewing/swallowing conerns. Meds reviewed, duloxetine added 10/10. No new weight but suspect stable r/t adequate PO intakes. Likely d/c today. Remains low nutrition risk.
[2021-10-13 13:54] VITALS: BP 148/82
--- NOTE | 2021-10-13 15:12 | NUR ---
The Pt has the following upcoming appointments PCP- Jeannine Garcias NP 10/26/2020 @ 1020am Psychiatric appointment at [facility] with Nica Lopez 11/03/2020 @1430. Pt's Psychiatarist Dr. Danni Moseley did not have any available appointments, so Pt was scheduled with Nica Lopez NP Pt will need to call [facility] and schedule an appointment for intake for PHP. Pt was verbally told this information and this information was also put in the discharge document.
--- NOTE | 2021-10-14 09:45 | D ---
[facility] [place] [address] DISCHARGE SUMMARY Name: ZACHARY SANTO Room #: 521B-B DIS IN M.R.#: [id number] Admission: 09/24/21 Attend Phys: Arash Huang DO Discharge: 10/13/21 Date of : 48 Report #: [id number] THIS REPORT FOR: cc: JEANNINE BAUTISTA NP, AMY NP Kerstein, Andrew H. DO ~ DATE OF SERVICE: 10/13/2021 INPATIENT PSYCHIATRIC DISCHARGE SUMMARY ATTENDING PSYCHIATRIST: Arash Huang DO C[employer]ER [employer]PERATIONS ASSOCIATE AT TIME OF DISCHARGE: Aguilar Ayala MD DISCHARGE DIAGNOSIS: Bipolar 1 disorder, depressed, moderate degree, improved. MEDICAL COMORBIDITIES: For this patient include akathisia, recent code stroke, ruled out for CVA, low back pain, history of COVID-19 positive state, acute kidney injury, hypertension, COPD, hypothyroidism. The patient is discharging to her daughter, Alanis's home at [facility]. The patient has been referred for PHP program. [facility]. She has a primary care appointment with Jeannine Garcias, nurse practitioner on 10/26/2021 at 10:20 a.m. She has an outpatient psychiatric appointment with [facility] with Paty Milian on 11/03/2021 at 1430. The patient's psychiatrist, Dr. Danni Moseley did not have any available appointments, so the patient was scheduled with nurse practitioner. Diet for this patient is regular. HOME MEDICATIONS: Atorvastatin 20 mg oral daily for hyperlipidemia, levothyroxine 50 mcg oral daily for thyroid replacement, aspirin 81 mg oral daily for heart protection, duloxetine 60 mg oral daily for depression, trazodone 100 mg oral at bedtime for sleep, lorazepam 0.5 mg oral 3 times a day for akathisia, pantoprazole 40 mg oral twice daily for GERD, propranolol 10 mg oral b.i.d. for akathisia. Of note, the propranolol did not transmit when I did the electronic discharge, so I called in a 10 mg #60 prescription to the patient's pharmacy, which I believe is the [facility] on [address] in [place], [place]. LABORATORY DATA: Significant laboratories this admission, hematology from 10/03, H and H 10.8 and 35.9, white count 6.8, platelet count 202. Chemistry this admission, most recent on 10/08, sodium 141, potassium 4.2, chloride 100, bicarbonate 33, anion gap 8, BUN 18, creatinine 1.0, estimated GFR 55, glucose 137, calcium 9.6, iron 58, TIBC 317, percent saturation 18 -- which was low, saturated IBC 259, total bilirubin 0.1 -- which was low, AST 30, ALT 35, alkaline phosphatase 66, total protein 7.1, albumin 3.7. Her TSH is 2.842. B12 level supratherapeutic at 11:51. Lipids were within normal limits. [address] [address] DISCHARGE SUMMARY Name: ZACHARY SANTO Room #: 521B-B DIS IN Lanre.R.#: [id number] Admission: 09/24/21 Attend Phys: Arash Huang, Discharge: 10/13/21 Date of : 48 Report #: [id number] slightly high at 5.8. Toxicology this admission, lithium level was done, and I will discuss this. We gave her a trial of lithium, which did not work out, which ranged from supratherapeutic at 1.4 to last lithium level 10/03 to 0.37. COVID-19 PCR was negative. Syphilis serology was nonreactive. IMAGING DATA: This admission, the patient ended up having [address], a CT angiogram and carotid Doppler. Most of those were due to a stroke alert. The CT scan was read as normal by the radiologist, Dr. Stratton. REASON FOR ADMISSION: Back on 09/24/2021 is as follows: A 71-year-old female sent to us from [facility]. Apparently, the patient had suicidal ideation with plan to overdose. The patient was admitted to Geriatric Psychiatry Unit. It turns out she had a psychiatric admission in 08/2021 at [facility]. Thee patient gave a history of at least hypomanic episodes. We initially did a lithium trial. She ended up with acute kidney injury and supratherapeutic levels. This was discontinued and next tried 0.5 mg b.i.d. Haldol. This resulted in profound akathisia. This was discontinued. The patient was then given Cymbalta, which she has been tried previously. The patient developed significant akathisia with this. So, we started her on scheduled Ativan and scheduled propranolol. We had several telephonic family meetings with her daughter, Alanis. The patient had been living independently in [place]. We did cognitive testing on her including consultation by Dr. Enoc Johnson, neuropsychologist. She was significantly depressed and they could only report that there was a neurocognitive disorder of unspecified severity. The patient's daughter had a number of concerns about limited progress. The patient's mood improved overall. Akathisia did improve. Certainly, I will repeat neuropsych testing as desirable. The patient was no longer meeting inpatient criteria. We moved to discharged to [facility] program with enhanced care. I did discuss with the daughter if she is not doing well after several weeks, then living with her and then she probably will need placement in a nursing facility. PHYSICAL EXAMINATION: VITAL SIGNS: On day of discharge, temperature 36.6, pulse 68, respirations 18, BP 148/82. BMI 24.7, weight 59.375 kilograms. MUSCULOSKELETAL: Assisted gait with walker. Fair hygiene. MENTAL STATUS EXAMINATION: Well-developed female appearing her own stated age. Attention fair. Concentration fair. Speech normal in rate,volume and tone. Thought Process: Linear and goal directed. Thought content focused on discharge, some anticipatory anxiety. Denied SI, HI. No auditory or visual type hallucinations. Some helplessness. Denied hopelessness. Mood and affect okay, congruent, euthymic. Insight and judgment fair. Fund of knowledge average. [address] [address] DISCHARGE SUMMARY Name: ZACHARY SANTO Room #: 521B-B [facility] IN M.R.#: [id number] Admission: 09/24/21 Attend Phys: Arash Huang DO Discharge: 10/13/21 Date of : 48 Report #: [id number] Prognosis for this patient is fair if she maintains treatment, and hopefully, she will not have progressive cognitive decline. <ELECTRONICALLY SIGNED> By: Arash Huang DO 10/14/21 [id number] [id number] Arash Huang DO /nt
== END 2021-10-13 17:30 | disposition home or self-care (01) | DRG 885 ==
LOC: SBH
PROVIDERS: Hospitalist; Internal Medicine; Nurse Practitioner; ADMIT Psychiatry & Neurology Psychiatry; ATTEND Psychiatry & Neurology Psychiatry
DX: F31.4 Bipolar disorder, current episode depressed, severe, without psychotic features (principal); U07.1 COVID-19; N17.9 Acute kidney failure, unspecified; R45.851 Suicidal ideations; G45.9 Transient cerebral ischemic attack, unspecified; G93.40 Encephalopathy, unspecified; G81.94 Hemiplegia, unspecified affecting left nondominant side; I10 Essential (primary) hypertension; Z20.822 Contact with and (suspected) exposure to COVID-19; E03.9 Hypothyroidism, unspecified; J44.9 Chronic obstructive pulmonary disease, unspecified; F51.5 Nightmare disorder; M54.50 Low back pain, unspecified; F41.9 Anxiety disorder, unspecified; R41.9 Unspecified symptoms and signs involving cognitive functions and awareness; R47.1 Dysarthria and anarthria; R47.02 Dysphasia; G25.71 Drug induced akathisia; E86.0 Dehydration; Z85.21 Personal history of malignant neoplasm of larynx
CPT/HCPCS: 10880

== ENCOUNTER 2021-09-23 05:54 | Inpatient (IN) | payer OTHER ==
[2021-09-23 05:56] VITALS: BP 124/38
[2021-09-23] MEDS ORDERED: ATORVASTATIN CA20 MG PO (05:58)
[2021-09-23] MEDS ORDERED: EUTHYROX88 MCG PO (05:58)
[2021-09-23] MEDS ORDERED: LAMOTRIGINE100 MG PO (05:59)
[2021-09-23] MEDS ORDERED: OLANZAPINE15 MG PO (05:59)
[2021-09-23] MEDS ORDERED: VISTARIL 25 MG25 M1 PO (05:59)
[2021-09-23] MEDS ORDERED: DULOXETINE HCL30 MG PO (06:00)
[2021-09-23] MEDS ORDERED: OMEPRAZOLE40 MG PO (06:00)
[2021-09-23] MEDS ORDERED: METOPROLOL SUCC50 MG PO (06:01)
[2021-09-23] MEDS ORDERED: OLANZAPINE10 MG PO (06:01)
[2021-09-23] MEDS ORDERED: LISINOPRIL10 MG PO (06:01)
[2021-09-23] MEDS ORDERED: HYDROCHLOROTH12.5 M2 PO (06:04)
[2021-09-23 18:13] VITALS: BP 142/79
[2021-09-23 22:29] LABS: CALCIUM 9.4 mg/dL (8.5-10.1); CREATININE 1.1 mg/dL (0.6-1.0); POTASSIUM 4.4 mmol/L (3.5-5.1)
[2021-09-24 03:04] VITALS: BP 106/49
--- NOTE | 2021-09-24 08:51 | EKG ---
[address] [employer] [place] [address] ELECTROCARDIOGRAM REPORT Name: ZACHARY SANTO Room #: 170-16 ADM IN M.R.#: [id number] Admission: 09/23/21 Attend Phys: Arash Huang DO Discharge: Date of : 48 Report #: [id number] [facility] ED Test Date: 2021-09-23 Test Time: 22:19:35 Pat Name: ZACHARY SANTO Department: Room: 170 16 Gender: F Tire Tester: jefferson : 1950 Requested By: Arash Huang Order Number: [id number] MD: Meño Carlson Measurements Intervals [place] Rate: 57 P: 51 MI: 124 QRS: 2 QRSD: 93 T: 70 QT: 441 QTc: 430 Interpretive Statements Sinus bradycardia Poor R wave progression No previous ECG available for comparison Electronically Signed On 09-24-2021 8:50:48 PRIMARY EDUCATION PROFESSOR by Meño Carlson [email or web address] <ELECTRONICALLY SIGNED> By: Meño Carlson MD, [facility] 09/24/21 0850 [id number] Meño Carlson MD, FAC /EPI
--- NOTE | 2021-09-24 09:18 | H ---
[facility] [place] [address] HISTORY AND PHYSICAL Name: ZACHARY SANTO Room #: 170-16 ADM IN M.R.#: [id number] Admission: 09/23/21 Attend Phys: Arash Huang DO Discharge: Date of : 48 Report #: [id number] THIS REPORT FOR: cc: VERONICA BAUTISTA NP, AMY NP Kerstein, Andrew H. DO ~ DATE OF SERVICE: 09/23/2021 INPATIENT EVALUATION ATTENDING: Arash Huang, BreannaO. TRACTOR CRANE ENGINEER: At this point has been ER doc, but will be Said Alarab from [facility] service. HISTORY OF PRESENT ILLNESS: The patient is in 170 bed in the Emergency Room due to testing positive for COVID-19. At this point, she is admitted to my service; however, this is unusual. If she tests negative on retest, she will go up to the [facility] Unit tomorrow, if not, she will have to remain on the list for medical isolation bed. The patient was actually brought from [facility] for [facility]al Health admission. Evidently, [facility] was full. The patient had, had suicidal ideation the day before to overdose. She was seen at [facility] [place] and her provider there, Dr. Alba, I believe referred her for inpatient admission. The patient has a long history of bipolar disorder dating back to her 30s. The patient's daughter, Blanca, is a nurse at [employer], who is very involved and felt that the patient would be in jeopardy of self-injury if an alternative hospitalization was pursued today. I do not have the [facility] records available to provide further characterization of her evaluation there. PAST MEDICAL HISTORY: Hypertension, hyperlipidemia, and hypothyroidism. MEDICATIONS: Med list I have is atorvastatin calcium 20 mg oral daily, levothyroxine 88 mcg oral daily, lamotrigine 100 mg p.o. b.i.d., olanzapine 15 mg oral daily, hydroxyzine pamoate 25 mg p.o. t.i.d., omeprazole 1 cap p.o. b.i.d., duloxetine 30 mg p.o. daily, metoprolol succinate 50 mg p.o. daily, olanzapine 10 mg p.o. daily, lisinopril 10 mg p.o. b.i.d., hydrochlorothiazide 12.5 mg oral daily. ALLERGIES: No known drug allergies. REVIEW OF SYSTEMS: Ten-point review of systems from the ER was: CONSTITUTIONAL: Denies fever, chills, malaise, unexplained weight change. EYES: Denies eye pain, visual change, or discharge. HENT: Denies hearing changes, ear drainage, ear infections, ear pain, neck pain [address] [address] HISTORY AND PHYSICAL Name: ZACHARY SANTO Room #: 170-16 ADM IN M.R.#: [id number] Admission: 09/23/21 Attend Phys: Arash Huang DO Discharge: Date of : 48 Report #: [id number] or neck stiffness. RESPIRATORY: Denies cough, shortness of breath, hemoptysis or respiratory distress. CARDIOVASCULAR: Denies chest pain with exertion or edema. GASTROINTESTINAL: Denies abdominal pain, nausea, vomiting or diarrhea. GENITOURINARY: Denies burning, frequency, dysuria. MUSCULOSKELETAL: Denies back pain, joint pain, or myalgias. SKIN: Denies rash. NEUROLOGIC: Denies headache or loss of consciousness. Otherwise, 10-point review of systems negative. PHYSICAL EXAMINATION: VITAL SIGNS: Temperature 36.4, pulse 71, respirations 16, BP 142/79, O2 sat 98%, weight has not been taken yet. Physical exam was grossly negative. SARS-CoV-2 PCR is positive. The patient had a 1:1 sitter earlier today, discontinued that as she was not actively suicidal. LABORATORY DATA: There were basic labs to my knowledge CBC, BMP done at [facility], which were negative. At the moment, I do not have record of them, but I will review them tomorrow when I can find out where they are stored. CURRENT MEDICATIONS ORDERED IN THE HOSPITAL: Metoprolol succinate 50 mg oral daily, levothyroxine 88 mcg oral daily, duloxetine 30 mg p.o. daily, atorvastatin 20 mg oral daily, hydrochlorothiazide 12.5 mg oral day, lisinopril 10 mg p.o. b.i.d. I did start her today on lithium carbonate 300 mg p.o. b.i.d. that still has not been given and I have to call the ER and find out why as it should have been. I attempted to order a 12-lead EKG, which would not go through [employer], so I have to call the nurse about that as well. MUSCULOSKELETAL: Sitting upright on hospital [facility], in the hospital gown. MENTAL STATUS EXAMINATION: This is a well-developed female, appearing stated age. Attention and concentration, intact. Speech normal in rate, volume, tone. Thought Process: Linear and goal directed. Thought content, wanting help for what she describes as her deep depression. Endorsed SI yesterday, but not today. Denies HI. Denies auditory, visual, or tactile hallucinations. Some helplessness and hopelessness. Memory not formally tested. Insight limited. Judgment limited. Fund of knowledge at least average. FORMULATION: A 71-year-old female transferred from [facility] for geriatric psych admission with now COVID positive. The patient has a [facility] [address] [place] [address] HISTORY AND PHYSICAL Name: ZACHARY SANTO Room #: 170-16 ADM IN M.R.#: [id number] Admission: 09/23/21 Attend Phys: Arash Huang DO Discharge: Date of : 48 Report #: [id number] history of COVID-19 in early June of this year and had a negative test at [facility]. DIAGNOSES: At this time, bipolar 1 disorder, most recent episode depressed, severe, that is F31.4. Other morbidities are hypertension, hypothyroidism. PLAN: The patient is in the 170 bed, pending clearance from acquiring medical isolation for COVID-19, had been admitted under myself, Dr. Huang to evaluate, stabilize, and obtain collateral. We will plan to get a 12-lead EKG. I had started lithium. I am not going to continue her Lamictal. I will continue her antidepressant at current dose. We will do the best we can in this adverse situation. STRENGTHS: She is insured, has a supportive daughter. WEAKNESSES: Longstanding mental illness, limited coping skills. <ELECTRONICALLY SIGNED> By: Arash Huang DO 09/24/21917 47 [id number] Arash Huang DO /nt
[2021-09-24 10:59] LABS: ABSOLUTE NEUTROPHILS 4.5 thou/uL (1.4-8.2); BASOPHILS 0.4 % (0.0-2.0); EOSINOPHILS 2.5 % (0.0-3.0); HEMATOCRIT 42.3 % (37.0-47.0); HEMOGLOBIN 13.7 gm/dL (12.0-15.0); LYMPHOCYTES 14.1 % (24.0-44.0); MCH 30.3 pg (26.0-34.0); MCHC 32.3 g/dL (28.0-37.0); MCV 93.7 fL (80.0-100.0); MONOCYTES 6.8 % (1.0-8.0); PLATELET COUNT 261 thou/uL (150-400); POLYS 76.2 % (36.0-66.0); RBC 4.51 mil/uL (4.20-5.00); RDW 13.8 % (10.5-14.5); WBC 5.9 thou/uL (4.0-11.0)
[2021-09-24 11:35] VITALS: BP 135/41
[2021-09-24 11:38] VITALS: BP 135/41
== END 2021-09-24 11:55 | DRG 178 ==
LOC: ER 05:54 → EROBS 13:14
PROVIDERS: Emergency Medicine; ADMIT Psychiatry & Neurology Psychiatry; ATTEND Psychiatry & Neurology Psychiatry
DX: U07.1 COVID-19 (principal); F31.4 Bipolar disorder, current episode depressed, severe, without psychotic features; R45.851 Suicidal ideations; I10 Essential (primary) hypertension; N19 Unspecified kidney failure; J44.9 Chronic obstructive pulmonary disease, unspecified; E78.5 Hyperlipidemia, unspecified; E03.9 Hypothyroidism, unspecified; Z79.899 Other long term (current) drug therapy; Z85.21 Personal history of malignant neoplasm of larynx; Z92.21 Personal history of antineoplastic chemotherapy; Z92.3 Personal history of irradiation; Z87.891 Personal history of nicotine dependence